=== PATIENT | female | born 1985 | race Caucasian/White ===

== ENCOUNTER 2023-08-26 19:48 | Emergency (ER) | payer BC ==
[2023-08-26 20:25] VITALS: BP 107/68; O2SAT 100
--- NOTE | 2023-08-26 21:05 | XRAY Report ---
PROCEDURE: Ankle 3+V RT INDICATIONS: right ankle injury TECHNIQUE: 3 views of the ankle were acquired. COMPARISON: None. FINDINGS: Bones: No fractures or dislocations. Ankle mortise is normally aligned. No suspicious bony lesions . Soft tissues: No tibiotalar joint effusion. Achilles tendon appears normal. IMPRESSION: No acute bony abnormality. Reviewed by: Rohit Dawson MD on 08/26/2023 9:04 PM PDT Approved by: Rohit Dawson MD on 08/26/2023 9:04 PM PDT Station ID: [id number]
--- NOTE | 2023-08-26 21:06 | XRAY Report ---
PROCEDURE: Foot 3+V RT INDICATIONS: Right foot injury TECHNIQUE: 3 views of the foot were acquired. COMPARISON: None. FINDINGS: Bones: No fractures or dislocations. No suspicious bony lesions. Soft tissues: No tibiotalar joint effusion. Achilles tendon appears normal. IMPRESSION: No acute bony abnormality. Reviewed by: Rohit Dawson MD on 08/26/2023 9:04 PM PDT Approved by: Rohit Dawson MD on 08/26/2023 9:04 PM PDT Station ID: [id number]
--- NOTE | 2023-08-26 22:18 | ED Physician Documentation ---
History of Present Illness - Stated complaint Stated Complaint: RT FOOT INJ - Chief complaint Chief Complaint: Trauma Ext - History obtained from History obtained from: Patient - History of Present Illness Timing: Today Pain level max: 5 Pain level now: 5 - Additonal information Additional information: 37-year-old female presents to the emergency department complaining of right foot pain. She states that she was exiting the boxing ring today when she landed awkwardly on the right foot causing pain mainly to the plantar aspect and dorsal aspect of the right foot. She is not having much pain in the ankle. Worse with movement, better with rest. No significant swelling. No numbness or tingling. Review of Systems Neurologic: denies: Head injury PD PAST MEDICAL HISTORY - Past Medical History Past Medical History: Yes Other Past Medical History: Factor V Leiden deficiency - Past Surgical History Past Surgical History: No - Allergies Allergies/Adverse Reactions: Allergies Allergy/AdvReac Type Severity Reaction Status Date / Time No Known Drug Allergies Allergy Verified 08/26/23 20:16 - Living Situation Living Arrangement: reports: At home - Social History Does the pt have substance abuse?: No PD ED PE NORMAL - Vitals Vital signs reviewed: Yes - General General: Alert and oriented X 3, No acute distress, Well developed/nourished - HEENT HEENT: Moist mucous membranes - Derm Derm: Warm and dry - Extremities Extremities: Other - Neuro Neuro: Alert and oriented X 3 - Psych Psych: Normal mood, Normal affect - Free text exam Free text exam: R foot/ankle - Most of the tenderness is on the plantar aspect of the foot. No significant tenderness over the right ankle. No significant tenderness over the dorsum of the foot. Achilles intact. Neurovascular intact. No swelling or deformity. Results - Vitals Vitals: Vital Signs - 24 hr 08/26/23 20:12 Temperature 98.8 C H Heart Rate 75 Respiratory 16 Rate Blood Pressure 107/68 O2 Saturation 100 Oxygen O2 Source Room air - Rads (name of study) R foot xray Relevant Findings:: Final report received, See rad report R ankle xray Relevant Findings:: Final report received, See rad report PD Medical Decision Making - ED course Complexity details: reviewed results, re-evaluated patient, considered differential, d/w patient ED course: No acute findings on x-ray of the right foot or right ankle. Declines any pain medication for home. Placed in a postoperative shoe for comfort and given crutches. Appears to have a foot sprain. No evidence of fractures or dislocations. Recommend that she follow-up with her PCP for further care in 1 week if she is still having symptoms. She can be weightbearing as tolerated. Patient counseled regarding signs and symptoms for which I believe and urgent re-evaluation would be necessary. Patient with good understanding of and agreement to plan and is comfortable going home at this time This document was made in part using voice recognition software. While efforts are made to proofread this document, sound alike and grammatical errors may occur. Departure - Departure Disposition: Home, Self Care Clinical Impression: Sprain of foot, right Qualifiers: Encounter type: initial encounter Qualified Code(s): S93.601A - Unspecified sprain of right foot, initial encounter Condition: Good Instructions: ED Sprain Foot Follow-Up: your,doctor in 1 week [Other] Comments: You can use Motrin, Tylenol or aspirin as needed for pain. Your x-ray of your foot and ankle did not show any acute abnormalities today. It appears that you likely have a foot sprain. You are placed no a postoperative shoe for comfort. You may bear weight as tolerated. Please return if you worsen. Forms: PCP List Discharge Date/Time: 08/26/23 22:30
[2023-08-26] MEDS: ASPIRIN 325 MG TABLET PO STA (22:25)
== END 2023-08-26 22:30 | disposition home or self-care (01) ==
LOC: ED 19:48
DX: S93.601A Unspecified sprain of right foot, initial encounter (principal); W19.XXXA Unspecified fall, initial encounter; Y92.89 Other specified places as the place of occurrence of the external cause
CPT/HCPCS: 73610; 73630; 99283; A9270